=== PATIENT | male | born 1975 | race Caucasian/White ===

== ENCOUNTER → 2020-12-07 11:24 | Outpatient (CLI) | payer OTHER, SELFPAY ==
[2020-12-07 13:02] LABS: ALB/GLOB Ratio 0.8 RATIO (0.9-2.4); AST(SGOT) 22 U/L (15-37); Alanine Aminotransfer ALT/SGPT 48 U/L (16-61); Albumin, Serum 3.4 g/dL (3.2-5.0); Alkaline Phosphatase 83 U/L (45-117); Anion Gap 7 (5-15); BUN 15 mg/dL (7-18); Calcium,Total 9.5 mg/dL (8.5-10.1); Chloride 103 mmol/L (98-107); Cholesterol 183 mg/dL (200); Creatinine, Serum 1.07 mg/dL (0.70-1.30); EST Glomerular Filtration Rate 80 mL/min (>60); Est Glom Filt Rate - Afr Amer 96 mL/min (>60); Globulin 4.2 g/dL (2.2-4.2); Glucose 126 mg/dL (74-106); High Density Lipoprotein 49 mg/dL; Potassium 4.1 mmol/L (3.5-5.1); Protein, Total 7.6 g/dL (6.4-8.2); Sodium Level 141 mmol/L (136-145); Thyroid Stim Hormone (TSH) 1.35 uIU/mL (0.358-3.74); Triglycerides 164 mg/dL; Very Low Density Lipoprotein 33 mg/dL (5-40)
[2020-12-07 13:42] LABS: Microalbumin,Random Urine < 5.0 mg/L (NO RANGE EST.)
== END ==
PROVIDERS: PCP Family Medicine; Referring Provider Internal Medicine Endocrinology, Diabetes & Metabolism; Visit Provider Internal Medicine Endocrinology, Diabetes & Metabolism
DX: E11.9 Type 2 diabetes mellitus without complications (principal)
CPT/HCPCS: 36415; 80053; 80061; 82043; 82570; 84443

== ENCOUNTER 2021-03-07 12:11 | Outpatient (CLI) | payer OTHER, SELFPAY ==
[2021-03-07 15:46] LABS: PSA,Total - Annual Screen 0.25 ng/mL (0.00-4.00)
[2021-03-07 17:40] LABS: Chlamydia Trachomatis by PCR Negative (Negative); Neisserai gonorrhoeae by PCR Negative (Negative)
[2021-03-07 17:41] LABS: Probe Check PASS; Sample Adequacy Control PASS; Specimen Processing Control PASS
== END 2021-03-07 23:59 | disposition short-term general hospital (02) ==
LOC: BIMLAB 12:11
PROVIDERS: PCP Internal Medicine; Referring Provider Internal Medicine; Visit Provider Internal Medicine
DX: R30.0 Dysuria (principal); E11.42 Type 2 diabetes mellitus with diabetic polyneuropathy
CPT/HCPCS: 36415; 84153; 87086; 87088; 87491; 87591; G0103

== ENCOUNTER 2021-04-16 08:22 | Outpatient (CLI) | payer OTHER, SELFPAY ==
[2021-04-16 08:33] LABS: Bacteria 0 SEEN /hpf (None Seen); Mucous, Urine 0 SEEN /hpf (<or=2+); Red Blood Cells-Urine 0 SEEN /hpf (0-5); Squamous Epithelial Cells - UA 0 SEEN /hpf (0-5); White Blood Cells 0 SEEN /hpf (0-5)
[2021-04-16 10:20] LABS: Color, Urine Amber (Yellow); Glucose, Dipstick 50 mg/dl (Normal); Ketone-Dipstick Negative (Negative); Leukocyte Esterase-Dipstick 25 /ul (Negative); Nitrite-Dipstick Positive (Negative); Occult Blood-Urine Negative /ul (Negative); Protein-Dipstick Negative (Negative); Specific Gravity, Urine 1.015 (1.002-1.030); Urine Clarity Clear (Clear); Urine Urobilinogen 4 mg/dl (Normal)
[2021-04-16 10:27] LABS: Urine Bilirubin Dipstick 3 mg/dL (Negative)
== END 2021-04-16 23:59 | disposition home or self-care (01) ==
LOC: LAB 08:23
PROVIDERS: PCP Internal Medicine; Referring Provider Internal Medicine Endocrinology, Diabetes & Metabolism; Visit Provider Internal Medicine Endocrinology, Diabetes & Metabolism
DX: R30.0 Dysuria (principal)
CPT/HCPCS: 81001; 87086; 87088

== ENCOUNTER 2021-07-14 13:07 | Emergency (ER) | payer OTHER, SELFPAY ==
[2021-07-14 13:08] VITALS: BP 151/93; PULSE 75; RESP 18; TEMP 36.9; O2SAT 98; BMI 52.9
--- NOTE | 2021-07-14 13:44 | EX.ED.DYSGE1 ---
HPI History of Present Illness Chief Complaint: Lower Extremity Injury Informant: patient Narrative Narrative: Patient is referred in here for an area of swelling discomfort and redness on his left medial thigh. Patient states he slipped through his deck in September 2020. He had an abrasion on his thigh and an area that was swollen. It has slowly and progressively gotten worse. I asked him if it swollen more recently or acutely. He states that his said she thinks its been swelling more the last 2 or so months. It is more red now. But it is hard to get if this is occurred over days or weeks or months. My suspicion is that the redness is more recent because his outlined it with a marker just about 2 days ago. It is still within that area. Patient states it hurts a little bit but it has not changed a lot. He has had subjective hot and cold feelings but no measured fevers. He states his blood sugars been well controlled. His last hemoglobin A1c was about 5.5. He has not seen anyone for this yet until today. His physician saw this and referred him in here for further evaluation. Nothing makes this better or worse. [facility] Medical History Diabetes Diabetes High blood pressure Obesity Pneumonia Seasonal allergies UTI (urinary tract infection) Vision problem Home Medications glimepiride 4 mg tablet ea PO 12/07/20 [History Last Taken Unknown] lisinopril 40 mg tablet 40 mg PO DAILY #90 tab 02/25/21 [Rx Last Taken Unknown] metformin 1,000 mg tablet 1,000 mg PO BID #60 tab 02/25/21 [Rx Last Taken Unknown] metoprolol succinate 200 mg tablet,extended release 24 hr 200 mg PO DAILY #90 tab 02/25/21 [Rx Last Taken Unknown] dulaglutide 1.5 mg/0.5 mL subcutaneous pen injector 1.5 mg SUBCUT QWEEK #2 ml 05/12/21 [Rx Last Taken Unknown] hydrochlorothiazide 25 mg tablet 25 mg PO DAILY #30 tab 06/22/21 [Rx Last Taken Unknown] cephalexin 500 mg PO Q6 #40 cap 07/14/21 [Rx Last Taken Unknown] Allergy/AdvReac Type Severity Reaction Status Date / Time No Known Allergies Allergy Verified 07/14/21 13:08 Social History Smoking Status: Never smoker Smokeless tobacco user: chewing tobacco alcohol intake: current alcohol intake frequency: other substance use type: does not use frequency: other ROS ROS ED Constitutional Constitutional ED: Reports subjective ENT ENT ED: Denies rhinorrhea Cardiovascular Cardiovascular: Denies chest pain or palpitations Respiratory/Chest Respiratory/Chest: Denies cough or dyspnea Gastrointestinal Gastrointestinal: Denies abdominal pain, diarrhea, nausea or vomiting Genitourinary Genitourinary ED: Denies dysuria Musculoskeletal Musculoskeletal: Reports other Details: See history of present illness. Integumentary Reports abscess, Abrasions, rash and other Details: See history of present illness for details. Neurologic Neurologic: Denies paresthesias Endocrine Endocrinology: Denies polydipsia or polyuria Allergic/Immunologic Allergic/Immunologic ED: Denies urticaria EXAM Physical Exam Const Vital Signs: 07/14/21 13:08 Temperature 98.5 F Temperature Source Temporal Pulse Rate 75 Respiratory Rate 18 Blood Pressure 151/93 H Blood Pressure Mean 112 Pulse Ox 98 Oxygen Delivery Method Room Air Positive well nourished, well developed and obese General Appearance ED: well developed; Negative for cyanotic or diaphoretic Nutritional Appearance: obese HEENT Negative for trauma Eyes General Eye ED: Negative for pale conjunctiva Neck no JVD Chest Wall inspection of chest normal Resp normal respiratory effort and clear to auscultation bilaterally Cardio regular rate and regular rhythm GI normal to inspection, nondistended, normoactive bowel sounds and non-tender Palpation: soft Extremity Extremity Narrative: Patient has an area about 6 inches around on his mid medial left thigh that is firm and reasonably well demarcated. The lower anterior portion does have a bit of fluctuance or softness that is different than other areas. The erythema is not outside of the marker that was placed a couple days ago. Distally he seems to have intact pulses. I do not feel any pulsations over this mass. It is slightly warm. Neuro Sensorium / Orientation: alert Psych mental status grossly normal Skin Skin Narrative: See above MDM MDM MDM Narrative Medical decision making narrative: Patient has normal CBC without a white count. Electrolytes are good including his glucose is well controlled at 97. CT scan showed a 11.7 x 8.1 x 13.1 cm fluid collection. I discussed the case with Dr. Dorcas Layton. He stated that he would not take this to surgery. He would just do bedside drainage and have follow-up. Procedure: Incision and drainage of cyst: I discussed risk benefits to the patient. We even discussed the vein is behind the backside of this. The area was scrubbed with alcohol swabs. It was then anesthetized with 1 and half cc of 1% lidocaine locally over a low portion that was near the skin and fluctuant. It was then scrubbed with wound cleanser and saline. 18-gauge needle was used to aspirate. We pulled out about 50 to 60 cc of serous yellow fluid that did not look grossly purulent. I then made an incision. We got more serous fluid out. Packing gauze were placed to hold this incision open. I was able to express more fluid out until the area was flat. He tolerated this very well. Even though the fluid did not look infected, there is erythema over the wound and I will start him on antibiotics. Since this does not appear to be a large abscess, I will not add Bactrim also. We discussed wound care, continued drainage and removal of the packing. We also discussed follow-up. I also discussed reasons to return acutely. Lab Data Attestation: I reviewed the patient's lab results. Labs: Laboratory Results - last 24 hr 07/14/21 07/14/21 14:05 14:05 WBC 8.4 RBC 5.67 Hgb 15.4 Hct 47.6 MCV 84.0 MCH 27.2 MCHC 32.4 RDW Std Deviation 41.8 RDW Coeff of [place] 13.5 Plt Count 261 MPV 10.2 Immature Gran % (Auto) 0.200 Neut % (Auto) 70.5 H Lymph % (Auto) 17.7 L [place] % (Auto) 9.9 Eos % (Auto) 1.2 Baso % (Auto) 0.5 Absolute Neuts (auto) 5.9 Absolute Lymphs (auto) 1.49 Nucleated RBC % 0 Sodium 139 Potassium 3.6 Chloride 103 Carbon Dioxide 30.0 Anion Gap 6 BUN 11 Creatinine 1.00 Estim Creat Clear Calc 99.35 Est GFR (MDRD) Af Amer 104 Est GFR (MDRD) Non-Af 86 BUN/Creatinine Ratio 11.0 Glucose 97 Calcium 9.7 Radiography Diagnostic Testing: Clinical Impression(s) from Imaging Studies Lower Extremity CT 07/14/21 14:45 IMPRESSION: Abnormality corresponds to a 7.7 cm by 8.1 cm x 13.1 some well-circumscribed predominantly fluid collection along the proximal medial aspect of the left thigh as described. Needle aspiration recommended. Electronically Signed: Jay Maravilla MD at 15:10 EDT , Discharge Plan Triage Chief Complaint: Lower Extremity Injury ED Provider: Rob Roman Dx/Rx/DC Orders Clinical Impression: Groin fluid collection, Encounter for incision and drainage procedure Instructions: ED Abscess Incision And Drainage Prescriptions: New cephalexin [cephalexin] 500 MG capsule 500 mg PO Q6 Qty: 40 RF: 0 No Action glimepiride 4 mg tablet PO RF: 0 metoprolol succinate 200 mg tablet extended release 24 hr 200 mg PO DAILY Qty: 90 RF: 3 metformin 1,000 mg tablet 1,000 mg PO BID Qty: 60 RF: 5 lisinopril [Zestril] 40 mg tablet 40 mg PO DAILY Qty: 90 RF: 1 Trulicity 1.5 mg/0.5 mL pen injector 1.5 mg subcut QWEEK Qty: 2 RF: 6 hydrochlorothiazide 25 mg tablet 25 mg PO DAILY Qty: 30 RF: 3 Primary Care Provider: Lena Zhou Referrals: Lena Zhou MD [Primary Care Provider] - 3-5 Days Disposition Disposition: Home, Self Care
[2021-07-14 14:15] LABS: Absolute Lymphocyte Count 1.49 X10^3/uL (0.83-4.51); Absolute Neutrophil Count 5.9 X10^3/uL (2.0-7.7); Basophil# 0.04 X10^3/uL; Basophil% 0.5 % (0-1); Eosinophils% 1.2 % (0-5); Hematocrit 47.6 % (40-54); Hemoglobin 15.4 g/dL (13.0-16.5); Lymphocyte # 1.49 X10^3/ul (0.83-4.51); Lymphocyte % 17.7 % (19-41); Mean Corp Hgb Conc 32.4 g/dL (32-36); Mean Corpuscular Hgb 27.2 pg (27.0-32.0); Mean Platelet Vol. 10.2 fl (6.2-12.0); Monocyte# 0.83 X10^3/uL; Monocyte% 9.9 % (0-10); NRBC Flagged by Analyzer 0 % (0-5); Neutrophil # 5.93 X10^3/uL (2.7-7.7); Neutrophil % 70.5 % (47-70); Platelet Count 261 K/mm3 (150-450); RBC Distribution Width CV 13.5 % (11.6-14.6); RBC Distribution Width SD 41.8 fl (35.1-43.9); Red Blood Count 5.67 M/mm3 (4.6-6.2); White Blood Count 8.4 K/mm3 (4.4-11.0)
[2021-07-14 14:28] LABS: Anion Gap 6 (5-15); BUN 11 mg/dL (7-18); Calcium,Total 9.7 mg/dL (8.5-10.1); Chloride 103 mmol/L (98-107); EST Glomerular Filtration Rate 86 mL/min (>60); Est Glom Filt Rate - Afr Amer 104 mL/min (>60); Estimated Creatinine Clearance 99.35 ml/min; Glucose 97 mg/dL (74-106); Potassium 3.6 mmol/L (3.5-5.1); Sodium Level 139 mmol/L (136-145)
--- NOTE | 2021-07-14 14:45 | CT_ITS ---
STUDY: CT SCAN LOWER EXTREMITY LEFT REASON FOR EXAM: Male, 46 years old. Left thigh mass. Continued swelling and redness following prior injury. RADIATION DOSAGE (If Supplied By Facility): CTDIvol = ( 33.43 ) mGy, DLP = ( 1873.84 ) mGycm. Individualized dose optimization techniques were used for this CT.? TECHNIQUE: Multiple axial tomographic images of the left thigh were obtained following intravenous injection of 100 mL of ISOVUE-300. Coronal and sagittal reconstructions obtained as well. COMPARISON: None. FINDINGS: There is a 11.7 cm x 8.1cm x 13.1 cm well circumscribed predominantly fluid collection along the medial aspect of the upper left thigh corresponding to the patient''s palpable abnormality. There is evidence of a mild degree of overlying skin thickening and increased markings in the subcutaneous fat. With the patient''s history of injury, this may represent either a resolving hematoma or possible seroma. Needle aspiration recommended. CT/Extremity Lower WITH Contrast IMPRESSION: Abnormality corresponds to a 7.7 cm by 8.1 cm x 13.1 some well-circumscribed predominantly fluid collection along the proximal medial aspect of the left thigh as described. Needle aspiration recommended. Electronically Signed: Jay Mraavilla MD at 15:10 EDT ,
[2021-07-14] MEDS: Lidocaine 1% (20 ml mdv) 20 ML Vial INFILT (15:46)
[2021-07-14] MEDS: Cephalexin 250 MG Capsule 500 MG PO (16:08)
[2021-07-14 16:59] VITALS: BP 156/99; PULSE 76; RESP 14; O2SAT 99
== END 2021-07-14 17:01 | disposition home or self-care (01) ==
PROVIDERS: Emergency Provider Emergency Medicine; PCP Internal Medicine; Visit Provider Emergency Medicine
DX: L72.9 Follicular cyst of the skin and subcutaneous tissue, unspecified (principal); F17.290 Nicotine dependence, other tobacco product, uncomplicated; E66.9 Obesity, unspecified
CPT/HCPCS: 73701; 80048; 85025; 87070; 87205; 96360; 99285; J7040; Q9967; A4216

== ENCOUNTER 2022-02-22 13:19 | Emergency (ER) | payer BC, SELFPAY ==
[2022-02-22 13:20] VITALS: BP 176/127; PULSE 83; RESP 15; TEMP 36.2; O2SAT 100; BMI 50.5
--- NOTE | 2022-02-22 13:40 | EKG12_ITS ---
Test Reason : HTN Blood Pressure : / mmHG Vent. Rate : 069 BPM Atrial Rate : 069 BPM P-R Int : 164 ms QRS Dur : 094 ms QT Int : 404 ms P-R-T Axes : 014 005 069 degrees QTc Int : 432 ms Normal sinus rhythm Cannot rule out Inferior infarct , age undetermined Abnormal ECG Confirmed by MERCY VAZQUEZ, ZACH ([id number]), editor in chief GIULIANO RAYO ([id number]) on 02/27/2022 12:18:01 PM Referred By: Confirmed By:ZACH MADRID MD
--- NOTE | 2022-02-22 13:41 | EX.ED.DYSGE1 ---
HPI History of Present Illness Chief Complaint: Hypertension Detail of Chief Complaint: High blood pressure Informant: patient Narrative Narrative: Patient presents the emergency department with concern for high blood pressure and not feeling well. Patient states that he was driving today when he started feeling tingling in his face and somewhat lightheaded. Patient states he had similar episode yesterday that he attributed to not having his metoprolol over the weekend because he had run out. Patient did take his losartan over the weekend. Patient has taken both his blood pressure medications today. He denies severe headache. He denies chest pain. No shortness of breath. Patient states the entire face feels slightly tingly. He denies any paresthesias of the extremities. He denies weakness of the extremities. Patient checked his blood pressure at home and it was 180/120 and normally he states he is around 150/100. Prior similar symptoms: No PFSH PFSH Medical History Diabetes Diabetes High blood pressure Obesity Pneumonia Seasonal allergies UTI (urinary tract infection) Vision problem Home Medications amlodipine 5 mg tablet (Norvasc) 5 mg PO DAILY #30 tabs 02/22/22 [Rx Last Taken Unknown] dulaglutide 3 mg/0.5 mL subcutaneous pen injector (Trulicity) 3 mg subcut RIOS DM 02/22/22 [History Last Taken 02/19/22] losartan 100 mg-hydrochlorothiazide 25 mg tablet 1 tab PO DAILY BP 02/22/22 [History Last Taken 02/21/22] metoprolol succinate 200 mg tablet,extended release 24 hr 200 mg PO DAILY HEART 02/22/22 [History Last Taken 02/21/22] Allergy/AdvReac Type Severity Reaction Status Date / Time No Known Allergies Allergy Verified 02/22/22 13:20 Social History Smoking Status: Never smoker Smokeless tobacco user: chewing tobacco alcohol intake: current alcohol intake frequency: other substance use type: does not use frequency: other ROS ROS ED Review of Systems ROS Unobtainable: other Constitutional Constitutional ED: Reports lethargy; Denies chills, fever(s), sweats or weight loss Eyes Eyes: Denies blurry vision, change in vision or diplopia ENT ENT ED: Denies rhinorrhea or sore throat Cardiovascular Cardiovascular: Denies chest pain, orthopnea or racing heartbeat Respiratory/Chest Respiratory/Chest: Denies cough, dyspnea, dyspnea on exertion, orthopnea or sputum Gastrointestinal Gastrointestinal: Denies abdominal pain, diarrhea, nausea or vomiting Genitourinary Genitourinary ED: Denies dysuria, hematuria or urinary frequency Musculoskeletal Musculoskeletal: Denies arthralgias, back pain, myalgias or neck pain Integumentary Denies abscess, Abrasions or rash Neurologic Neurologic: Reports paresthesias; Denies headache(s) or weakness Psychiatric Psychiatric: Denies anxiety, depression or suicidal thoughts Endocrine Endocrinology: Denies polydipsia, polyphagia or polyuria Hematologic/Lymphatic Hematologic/Lymphatic: Denies easy bleeding, easy bruising or lymphadenopathy Allergic/Immunologic Allergic/Immunologic ED: Denies mouth swelling, tongue swelling or urticaria EXAM Physical Exam Const Vital Signs: 02/22/22 13:20 02/22/22 13:54 02/22/22 13:55 Temperature 97.2 F L Temperature Source Temporal Pulse Rate 83 Respiratory Rate 15 Respiratory Effort Normal Blood Pressure 176/127 H 190/122 H Blood Pressure Mean 143 144 Pulse Ox 100 Oxygen Delivery Method Room Air 02/22/22 14:34 Temperature Temperature Source Pulse Rate 68 Respiratory Rate 13 Respiratory Effort Blood Pressure 176/100 H Blood Pressure Mean 125 Pulse Ox 97 Oxygen Delivery Method Room Air Positive well nourished and well developed General Appearance ED: well developed and NAD HEENT Reports TM's clear and moist mucous membranes normocephalic and atraumatic; Negative for trauma or tenderness Tympanic Membrane ED: Yes TM's clear Eyes PERRL and EOMs intact bilaterally General Eye ED: Negative for pale conjunctiva or scleral icterus Neck no lymphadenopathy, supple and no JVD General: Negative for tenderness Chest Wall inspection of chest normal and palpation of chest normal Chest: Negative for tenderness Resp normal respiratory effort and clear to auscultation bilaterally Effort and Inspection: Negative for respiratory distress or pain with movement Auscultation: Negative for rhonchi, wheezes or diminished lung sounds Cardio regular rate, regular rhythm, S1 normal heart sound, S2 normal heart sound and no murmurs Peripheral Pulses: pulses 2+ throughout GI normal to inspection, nondistended, normoactive bowel sounds, soft to palpation, non-tender, non-distended and no masses Back/Spine no CVA tenderness and no thoracic nor lumbar tenderness Extremity normal to inspection General Extremety ED: Negative for edema General Extremity: Negative for edema Neuro oriented x3, CN's II-XII intact bilaterally, no sensory deficits noted and gait normal Sensorium / Orientation: awake, alert, oriented to person, oriented to place and oriented to time Motor Exam: strength 5/5 throughout and strength abnormal Psych mental status grossly normal Skin no rashes or lesions noted and no wounds MDM MDM MDM Narrative Medical decision making narrative: Line established on arrival. Patient was given labetalol 20 mg IV x1. Blood pressure did improve systolic in the 150s at 1 point but then went back up into the 170s and his diastolic is been 95-100. This is closer to in line with his chronic hypertensive numbers. I discussed case with his primary care physician Dr. Holder who recommended adding Norvasc 5 mg daily. At this point I do not see any evidence of endorgan damage. I do not feel he needs to be admitted. Patient advised to keep a journal of his blood pressures and follow-up with his primary care physician. Lab Data Attestation: I reviewed the patient's lab results. Labs: Laboratory Results - last 24 hr 02/22/22 02/22/22 13:34 13:34 WBC 7.3 RBC 6.01 Hgb 17.0 H Hct 49.1 MCV 81.7 MCH 28.3 MCHC 34.6 RDW Std Deviation 39.4 RDW Coeff of [place] 13.4 Plt Count 239 MPV 10.2 Immature Gran % (Auto) 0.300 Neut % (Auto) 65.0 Lymph % (Auto) 24.9 [place] % (Auto) 7.7 Eos % (Auto) 1.6 Baso % (Auto) 0.5 Absolute Neuts (auto) 4.7 Absolute Lymphs (auto) 1.81 Nucleated RBC % 0 Sodium 138 Potassium 3.5 Chloride 104 Carbon Dioxide 29.0 Anion Gap 5 BUN 12 Creatinine 0.99 Estim Creat Clear Calc 103.42 Est GFR (MDRD) Af Amer 105 Est GFR (MDRD) Non-Af 87 BUN/Creatinine Ratio 12.1 Glucose 98 Calcium 9.6 Troponin I High Sens 12 EKG Initial EKG: Attestation: I personally reviewed and interpreted this EKG as follows: Comments: Sinus rhythm with a rate of 69 bpm with no acute ST segment changes Prior EKG tracings: available for review Prior: Unchanged Discharge Plan Triage Chief Complaint: Hypertension ED Provider: Brayan Holly Dx/Rx/DC Orders Clinical Impression: Hypertension Instructions: ED Hypertension, Established Prescriptions: New amlodipine [Norvasc] 5 mg tablet 5 mg PO DAILY Qty: 30 0RF No Action metoprolol succinate 200 mg tablet extended release 24 hr 200 mg PO DAILY losartan-hydrochlorothiazide 100-25 mg tablet 1 tab PO DAILY Trulicity 3 mg/0.5 mL pen injector 3 mg subcut RIOS Rx Instructions: DISPENSE [address] OF 4.5 MG DOSE LONG 4.5 MG DOSE IS UNAVAILABLE. Primary Care Provider: Lena Zhou Referrals: Lena Zhou MD [Primary Care Provider] - Disposition Disposition: Home, Self Care
[2022-02-22 13:54] VITALS: BP 190/122
[2022-02-22] MEDS: Labetalol (Prefilled) 20 MG/4 ML IV (14:00)
[2022-02-22] MEDS: 0.9% Normal Saline 1,000 ML 150 ML IV (14:00)
[2022-02-22 14:08] LABS: Absolute Lymphocyte Count 1.81 X10^3/uL (0.83-4.51); Absolute Neutrophil Count 4.7 X10^3/uL (2.0-7.7); Basophil# 0.04 X10^3/uL; Basophil% 0.5 % (0-1); Eosinophil# 0.12 X10^3/uL; Eosinophils% 1.6 % (0-5); Hematocrit 49.1 % (40-54); Lymphocyte # 1.81 X10^3/ul (0.83-4.51); Lymphocyte % 24.9 % (19-41); Mean Corp Hgb Conc 34.6 g/dL (32-36); Mean Corpuscular Hgb 28.3 pg (27.0-32.0); Mean Corpuscular Volume 81.7 fL (80-94); Mean Platelet Vol. 10.2 fl (6.2-12.0); Monocyte# 0.56 X10^3/uL; Monocyte% 7.7 % (0-10); NRBC Flagged by Analyzer 0 % (0-5); Neutrophil # 4.73 X10^3/uL (2.7-7.7); Platelet Count 239 K/mm3 (150-450); RBC Distribution Width CV 13.4 % (11.6-14.6); RBC Distribution Width SD 39.4 fl (35.1-43.9); Red Blood Count 6.01 M/mm3 (4.6-6.2); White Blood Count 7.3 K/mm3 (4.4-11.0)
[2022-02-22 14:31] LABS: Anion Gap 5 (5-15); BUN 12 mg/dL (7-18); BUN/Creat Ratio 12.1 RATIO (10-20); Calcium,Total 9.6 mg/dL (8.5-10.1); Chloride 104 mmol/L (98-107); Creatinine, Serum 0.99 mg/dL (0.70-1.30); EST Glomerular Filtration Rate 87 mL/min (>60); Est Glom Filt Rate - Afr Amer 105 mL/min (>60); Estimated Creatinine Clearance 103.42 ml/min; Glucose 98 mg/dL (74-106); Potassium 3.5 mmol/L (3.5-5.1); Sodium Level 138 mmol/L (136-145); Troponin-I HS 12 pg/mL (3.0-78.0)
[2022-02-22 14:34] VITALS: BP 176/100; PULSE 68; RESP 13; O2SAT 97
--- NOTE | 2022-02-22 15:10 | NURSING ---
[id number] OCASIO'S [place] [id number] OCASIO'S CELL AND LEFT MESSAGE
--- NOTE | 2022-02-22 15:11 | NURSING ---
CALLED DR OCASIO'S OFFICE AND LEFT MESSAGE
[2022-02-22 15:30] VITALS: BP 173/95; PULSE 80; O2SAT 99
== END 2022-02-22 15:35 | disposition home or self-care (01) ==
PROVIDERS: Emergency Provider Emergency Medicine; PCP Internal Medicine; Visit Provider Emergency Medicine
DX: I10 Essential (primary) hypertension (principal); F17.290 Nicotine dependence, other tobacco product, uncomplicated; Z79.899 Other long term (current) drug therapy
CPT/HCPCS: 80048; 84484; 85025; 93005; 96374; 99283; J7030; A4216

== ENCOUNTER 2023-02-22 23:47 | Emergency (ER) | payer OTHER, SELFPAY ==
[2023-02-22 23:48] VITALS: PULSE 74; RESP 18; TEMP 36.2; O2SAT 97; BMI 59.6
--- NOTE | 2023-02-22 23:51 | EDS_ITS ---
HPI History of Present Illness Chief Complaint: Chest Pain [facility] Medical History Diabetes Diabetes High blood pressure Obesity Pneumonia Seasonal allergies UTI (urinary tract infection) Vision problem Home Medications metoprolol succinate 200 mg tablet,extended release 24 hr 200 mg PO DAILY HEART 02/22/22 [History Last Taken 02/21/22] amlodipine 10 mg tablet 10 mg PO DAILY #90 tabs 12/18/22 [Rx Last Taken Unknown] tirzepatide 12.5 mg/0.5 mL subcutaneous pen injector (Mounjaro) 12.5 mg (0.5 mL) subcut QWEEK #2 mL 12/18/22 [Rx Last Taken Unknown] losartan 100 mg-hydrochlorothiazide 25 mg tablet 1 tab PO DAILY BP #90 tabs 01/11/23 [Rx Last Taken Unknown] Allergy/AdvReac Type Severity Reaction Status Date / Time No Known Allergies Allergy Verified 02/22/23 23:47 Social History Smoking Status: Never smoker Smokeless tobacco user: chewing tobacco alcohol intake: current alcohol intake frequency: other substance use type: does not use frequency: other EXAM Physical Exam Const Vital Signs: 02/22/23 23:48 02/22/23 23:53 02/23/23 01:47 Temperature 97.2 F L Temperature Source Temporal Pulse Rate 74 67 Respiratory Rate 18 17 Blood Pressure 143/82 H 113/71 Blood Pressure Mean 102 85 Pulse Ox 97 97 Oxygen Delivery Method Room Air MDM MDM MDM Narrative Medical decision making narrative: HISTORY OF PRESENT ILLNESS: 47 year-old male presents with chest pain. The patient endorses left arm/shoulders, travels across the chest and palpitations. He states this started several days ago has been intermittent, worse with food. States the pain starts in his left shoulder/left trapezius area and radiates across. It is pressure-like currently. It is not exertional It is not sharp or ripping or tearing. It is not exertional. It is not pleuritic. He denies any vomiting. Denies any bleeding diathesis. Denies any family or personal history of cardiac before the age of 50. He denies smoking or illicit drug use such as cocaine or methamphetamine. He denies any abdominal pain at this time. He denies any shortness of breath. Patient denies sudden onset of pain, no tearing sensation, no migratory symptoms, no new numbness, weakness or loss of sensation. Patient denies family history or personal history of Marfan syndrome or Srinivasa-Danlos. The patient denies recent surgery in the last 4 weeks or immobilization in the last 3 days, denies previous diagnosis of DVT or PE, hemoptysis, unilateral leg swelling or malignancy with treatment the last 6 months. No estrogen use noted. REVIEW OF SYSTEMS: All other systems reviewed and are negative except as noted in the history of present illness. At least 10 review of systems reviewed and are negative except as noted in history of present illness. PHYSICAL EXAM: Nursing triage notes reviewed, Vital signs reviewed Constitutional: please see mdm HENT: MMM Eyes: Pupils equal round and reactive to light, Extraocular muscles intact Neck: No stridor, no JVD, full neck ROM Lungs: Clear to auscultation, No wheezing or rales. No increased work of breathing, no conversational dyspnea, no accessory muscle use, no nasal flaring. No respiratory distress noted Heart: Regular rate and rhythm, No murmurs, No rubs and No gallops, 2+ distal pulses (radial, femoral, posterior tibial) in all extremities Abdomen: Soft, there is no tenderness, rigidity, rebound or guarding, no obvious peritoneal signs, no palpable pulsatile abdominal masses, no auscultated abdominal bruit : No CVAT Extremities: No edema Neuro: No focal neurological deficits, cranial nerves II through XII intact, 5/5 strength in all extremities. Intact sensation to light touch in all extremities, 2+ reflexes bilateral patella tendons. Normal gait. No ataxia. Skin: No rash or lesions noted MEDICAL DECISION MAKING: Chief Complaint: Chest pain External records reviewed: No recent cardiac observation, stress test or echocardiograms noted in the chart Factors affecting care: HTN, hypertension, type 2 diabetes Social determinants of health: none History obtained from others: The patient's Consults: none [facility] Narrative: Patient was initially hemodynamically stable, afebrile, nontoxic-appearing. No acute distress. No cardiopulmonary abnormalities on initial exam. No pulse deficits or focal weakness. I considered the following differential diagnosis: ACS, arrhythmia, anemia, electrolyte abnormality, pneumonia, pneumothorax, GI etiology, PE ALL IMAGES (IF OBTAINED) HAVE BEEN PERSONALLY REVIEWED AND INTERPRETED BY MYSELF. Initial EKG shows normal sinus rhythm, normal axis, normal intervals, occasional PVCs, no STEMI High-sensitivity troponin is negative, no evidence of myocardial ischemia x 2 CBC without leukocytosis, severe anemia, no thrombocytopenia. BMP without evidence of significant electrolyte abnormalities, no anion gap, no acute kidney injury. I have personally reviewed the patient's chest x-ray. Chest x-ray is unremarkable for pulmonary edema, pneumothorax, pneumonia or focal cardiopulmonary abnormality. Heart score 3 The synthesis of the patient's history, physical exam, labs images suggest no acute life or limb threatening cardiopulmonary abnormality. My impression is that patient's pain may be associated with GI etiology given is worse with food. PE less likely given low risk Wells score. Aortic dissection is thought to be less likely given no sudden ripping or tearing pain, migratory pain, palpable pulse inequalities, no focal neurologic deficits concurrent with chest pain. Chance of dissection less than 02/1999. Pericarditis less likely given no pathognomonic EKG changes (no diffuse ST elevations, [place] depressions). GI etiology (i.e. Boerhaave syndrome) less likely given no chest or neck crepitus, no vomiting or forced retching. I completed a HEART Score to screen for Major Adverse Cardiac Event (MACE) in this patient. The evidence indicates that the patient is very low risk for MACE and this is consistent with my clinical intuition. The risk of further workup or hospitalization for MACE is likely higher than the risk of the patient having a MACE. It is, therefore, in the patient?s best interest not to do additional emergent testing or to be hospitalized for MACE at this time. Shared Decision-Making No hospitalization indicated I have discussed with the patient my clinical impression and the result of the HEART Score to screen for MACE, as well as the risks of further testing and hospitalization. The HEART Score shows that the risk for MACE is less than 1%. Although the risk of MACE has not been completely eliminated, the risks of further testing or hospitalization for MACE likely exceed any potential benefit, and the patient agrees with not pursuing further emergent evaluation or hospitalization for MACE at this time. The patient and/or family, caregivers express understanding. The patient and/or family, caregivers agrees with the plan. Total critical care time today provided was at least 0 minutes. This excludes separately billable procedures. Critical care time (if documented) is secondary to the patient having high probability of clinically significant/life threatening deterioration in the patient's condition which required my urgent intervention. Impression: 1. Chest pain 2. Hypokalemia Disposition: Discharge home Giovani Mckeon DO Lab Data Labs: Laboratory Results - last 24 hr 02/23/23 02/23/23 00:39 03:08 WBC 7.9 RBC 6.01 Hgb 16.6 H Hct 50.3 MCV 83.7 MCH 27.6 MCHC 33.0 RDW Std Deviation 40.0 RDW Coeff of [place] 13.2 Plt Count 243 MPV 10.0 Immature Gran % (Auto) 0.300 Neut % (Auto) 50.6 Lymph % (Auto) 35.2 [place] % (Auto) 10.3 H Eos % (Auto) 2.5 Baso % (Auto) 1.1 H Absolute Neuts (auto) 4.0 Absolute Lymphs (auto) 2.76 Nucleated RBC % 0 Sodium 137 Potassium 3.4 L Chloride 105 Carbon Dioxide 25.0 Anion Gap 7 BUN 14 Creatinine 1.06 Estim Creat Clear Calc 155.63 Est GFR (MDRD) Af Amer 96 Est GFR (MDRD) Non-Af 80 BUN/Creatinine Ratio 13.2 Glucose 121 H Calcium 9.3 Troponin I High Sens 14 14 Radiography Diagnostic Testing: Clinical Impression(s) from Imaging Studies Chest X-Ray 02/23/23 00:50 IMPRESSION: No radiographic evidence of acute cardiopulmonary disease. Electronically Signed: Ruben Zhu MD at 1:27 EST , Discharge Plan Triage Chief Complaint: Chest Pain ED Provider: Giovani Mckeon Dx/Rx/DC Orders Clinical Impression: Chest pain Instructions: Chest Pain [facility] Prescriptions: No Action amlodipine 10 mg tablet 10 mg PO DAILY Qty: 90 1RF Mounjaro 12.5 mg/0.5 mL pen injector 12.5 mg subcut QWEEK Qty: 2 5RF metoprolol succinate 200 mg tablet extended release 24 hr 200 mg PO DAILY losartan-hydrochlorothiazide 100-25 mg tablet 1 tab PO DAILY Qty: 90 1RF Primary Care Provider: Lena Zhou Referrals: Lena Zhou MD [Primary Care Provider] - Activity Restrictions/Additional Instructions: Thank you for trusting us with your care today! Please take Tylenol (2 pills, 650 mg), ibuprofen (2 pills, 400 mg) every 6 hours as needed for pain and fever control. Please return to the emergency department if your symptoms change or worsen. Please follow with your primary care physician for further outpatient evaluation and management. Disposition Disposition: Home, Self Care
[2023-02-22 23:53] VITALS: BP 143/82
--- NOTE | 2023-02-23 00:10 | EKG12_ITS ---
Test Reason : DYSRHYTHMIA Blood Pressure : / mmHG Vent. Rate : 068 BPM Atrial Rate : 068 BPM P-R Int : 160 ms QRS Dur : 096 ms QT Int : 422 ms P-R-T Axes : 009 015 116 degrees QTc Int : 448 ms Sinus rhythm with Premature ventricular complexes or Fusion complexes Nonspecific ST and T wave abnormality Abnormal ECG Confirmed by MERCY VAZQUEZ, ZACH ([id number]), technical writer and editor ANH LIVINGSTON ([id number]) on 02/23/2023 9:44:52 AM Referred By: LAVON Confirmed By:ZACH MADRID MD
--- OUTSIDE RECORDS SUMMARY | 2023-02-23 00:19 | XMS RPT_ITS | CCD ---
Author Name Unknown Address [address] [place] [address] Organization [facility] Results Test Name Value Interpretation Reference Range Facil ity Summary Purpose Family History No Family History Records Found Advance Directives No Advanced Directives Records Found Additional Source Comments (unrecognized sect ion and content) No Status Records Found INFORMATION SOURCE (unrecogn ized section and content) FOR RECORDS PERTAINING TO PATIENTS WHO ARE OR HAVE BEEN ENROLLED IN A CHEMICAL DEPENDENCY/SUBSTANCEABUSE PROGRAM, SOME INFORMATION MAY BE OMITTED. This clinical summary was aggregated from multiple sources. Caution should be exercised in using it in the provision of clinical care. This summary normalizes information from multiple sources, and as a consequence, information in this document may materially change the coding, format and clinical context of patient data. In addition, data may be omitted in some cases. CLINICAL DECISIONS SHOULD BE BASED ON THE PRIMARY CLINICAL RECORDS. [facility]. provides no warranty or guarantee of the accuracy or completeness of information in this document.
[2023-02-23 00:47] LABS: Absolute Lymphocyte Count 2.76 X10^3/uL (0.83-4.51); Basophil# 0.09 X10^3/uL; Basophil% 1.1 % (0-1); Eosinophils% 2.5 % (0-5); Hematocrit 50.3 % (40-54); Hemoglobin 16.6 g/dL (13.0-16.5); Lymphocyte # 2.76 X10^3/ul (0.83-4.51); Lymphocyte % 35.2 % (19-41); Mean Corpuscular Hgb 27.6 pg (27.0-32.0); Mean Corpuscular Volume 83.7 fL (80-94); Monocyte# 0.81 X10^3/uL; Monocyte% 10.3 % (0-10); NRBC Flagged by Analyzer 0 % (0-5); Neutrophil # 3.97 X10^3/uL (2.7-7.7); Neutrophil % 50.6 % (47-70); Platelet Count 243 K/mm3 (150-450); RBC Distribution Width CV 13.2 % (11.6-14.6); Red Blood Count 6.01 M/mm3 (4.6-6.2); White Blood Count 7.9 K/mm3 (4.4-11.0)
--- NOTE | 2023-02-23 00:50 | RAD_ITS ---
INDICATION: chest pain EXAMINATION/TECHNIQUE: X-RAY - XR Chest 1 View COMPARISON: Chest x-ray from 04/06/2016 FINDINGS: LINES/DEVICES: None. LUNGS: No pulmonary edema or focal airspace consolidation. No sizable pleural effusion. No pneumothorax detected. Stable mildly elevated right hemidiaphragm. MEDIASTINUM AND CARDIOVASCULAR STRUCTURES: Heart size within normal limits. Mediastinal contours unremarkable. BONES AND SOFT TISSUES: No acute findings. RAD/Chest 1 View (Portable) IMPRESSION: No radiographic evidence of acute cardiopulmonary disease. Electronically Signed: Ruben Zhu MD at 1:27 EST ,
[2023-02-23 01:19] LABS: Anion Gap 7 (5-15); BUN 14 mg/dL (7-18); BUN/Creat Ratio 13.2 RATIO (10-20); Calcium,Total 9.3 mg/dL (8.5-10.1); Chloride 105 mmol/L (98-107); Creatinine, Serum 1.06 mg/dL (0.70-1.30); EST Glomerular Filtration Rate 80 mL/min (>60); Est Glom Filt Rate - Afr Amer 96 mL/min (>60); Estimated Creatinine Clearance 155.63 ml/min; Glucose 121 mg/dL (74-106); Potassium 3.4 mmol/L (3.5-5.1); Sodium Level 137 mmol/L (136-145); Troponin-I HS (w/2H Reflex) 14 pg/mL (3.0-78.0)
[2023-02-23 01:47] VITALS: BP 113/71; PULSE 67; RESP 17; O2SAT 97
[2023-02-23 02:42] LABS: Reflex Troponin-HS? (from REC) Y
[2023-02-23 03:36] LABS: Troponin-I HS 14 pg/mL (3.0-78.0)
[2023-02-23 04:03] VITALS: BP 126/77; PULSE 70; RESP 16; O2SAT 94
== END 2023-02-23 04:03 | disposition home or self-care (01) ==
PROVIDERS: Emergency Provider Emergency Medicine; PCP Internal Medicine; Visit Provider Emergency Medicine
DX: R07.9 Chest pain, unspecified (principal); E11.9 Type 2 diabetes mellitus without complications; E87.6 Hypokalemia; I10 Essential (primary) hypertension; Z79.899 Other long term (current) drug therapy
CPT/HCPCS: 71045; 80048; 84484; 85025; 93005; 99283; A4216

== ENCOUNTER → 2025-02-09 | Outpatient (CLI) | payer BC, SELFPAY ==
[2025-02-09 14:09] LABS: Creatinine, Urine (random) 41.10 mg/dL (39.00-259.00); Microalbumin,Random Urine < 12.0 mg/L (<20 mg/L)
[2025-02-09 14:17] LABS: AST(SGOT) 37 U/L (<=37); Alanine Aminotransfer ALT/SGPT 50 U/L (<=46); Albumin, Serum 4.1 g/dL (3.5-5.0); Alkaline Phosphatase 74 U/L (40-129); Anion Gap 11 (7-18); BUN 12 mg/dL (4-19); BUN/Creat Ratio 12.4 RATIO (10-20); Calcium,Total 9.7 mg/dL (7.6-11.0); Carbon Dioxide 27.7 mmol/L (20.0-29.0); Chloride 103 mmol/L (96-106); Cholesterol 162 mg/dL (<=200); Globulin 3.1 g/dL (2.2-4.2); Glucose 94 mg/dL (70-99); Low Density Lipoprotein Calc. 93 mg/dL; Potassium 3.5 mmol/L (3.5-5.1); Triglycerides 161 mg/dL; Very Low Density Lipoprotein 32 mg/dL (5-40); cholesterol:hdl ratio screen 3.96
== END | disposition home or self-care (01) ==
LOC: LAB 11:59
PROVIDERS: PCP Internal Medicine; Referring Provider Internal Medicine Endocrinology, Diabetes & Metabolism; Visit Provider Internal Medicine Endocrinology, Diabetes & Metabolism
DX: E11.42 Type 2 diabetes mellitus with diabetic polyneuropathy (principal); E66.01 Morbid (severe) obesity due to excess calories; Z68.43 Body mass index [BMI] 50.0-59.9, adult; I10 Essential (primary) hypertension
CPT/HCPCS: 36415; 80053; 80061; 82043; 82570; 84443